=== PATIENT | female | born 1940 | race Caucasian/White ===

== ENCOUNTER 2020-12-16 11:17 | Outpatient (CLI) | payer MEDICARE, BC ==
[~2020-12-16 11:17] MED LIST: Magnevist 469MG/ML 20 ML VIAL ONE
== END 2020-12-16 11:18 | disposition home or self-care (01) ==
LOC: BICMRI 11:17
PROVIDERS: ATTEND Internal Medicine Cardiovascular Disease
DX: I63.89 Other cerebral infarction (principal); I67.9 Cerebrovascular disease, unspecified
CPT/HCPCS: 70549; 82565; A9579

== ENCOUNTER 2022-03-12 11:00 | Outpatient (CLI) | payer MEDICARE, BC | END 2022-03-12 11:01 | disposition home or self-care (01) | LOC: PET 11:00 | PROVIDERS: ATTEND Psychiatry & Neurology Neurology | DX: F03.90 Unspecified dementia, unspecified severity, without behavioral disturbance, psychotic disturbance, mood disturbance, and anxiety (principal) | CPT/HCPCS: 78803; A9552 ==

== ENCOUNTER 2022-03-23 10:42 | Outpatient (CLI) | payer MEDICARE, BC ==
[2022-03-23] MEDS ORDERED: Iopamidol 370 76% 100 ML VIAL ONE (11:40)
== END 2022-03-23 10:43 | disposition home or self-care (01) ==
LOC: MRI 10:42
PROVIDERS: ATTEND Psychiatry & Neurology Neurology
DX: F03.90 Unspecified dementia, unspecified severity, without behavioral disturbance, psychotic disturbance, mood disturbance, and anxiety (principal); I65.23 Occlusion and stenosis of bilateral carotid arteries; J43.9 Emphysema, unspecified; J98.4 Other disorders of lung; I70.8 Atherosclerosis of other arteries; I08.1 Rheumatic disorders of both mitral and tricuspid valves; I67.89 Other cerebrovascular disease; Z90.13 Acquired absence of bilateral breasts and nipples; Z98.82 Breast implant status
CPT/HCPCS: 70496; 70498; 70551; 93306; Q9967